=== PATIENT | female | born 1980 | race Two or more races ===

== ENCOUNTER → 2018-03-29 | Outpatient (REF) | payer BC ==
[2018-03-31 14:13] LABS: HPV HYBRID CAPTURE II Negative (Negative)
== END ==
LOC: M LAB REF 19:17
PROVIDERS: ATTEND Advanced Practice Midwife
DX: Z12.4 Encounter for screening for malignant neoplasm of cervix (principal)
CPT/HCPCS: 87624; G0123

== ENCOUNTER → 2019-04-23 | Outpatient (REF) | payer BC ==
[2019-04-23 19:28] LABS: CHLAMYDIA DNA AMPLIFICATION NEGATIVE (NEGATIVE); GC DNA AMPLIFICATION NEGATIVE (NEGATIVE)
== END ==
LOC: M SFHCWAGY 16:54
PROVIDERS: ATTEND Advanced Practice Midwife
DX: Z11.3 Encounter for screening for infections with a predominantly sexual mode of transmission (principal)

== ENCOUNTER → 2019-09-10 | Outpatient (CLI) | payer BC, MEDICARE ==
[~2019-09-10] MED LIST: CENTCHW4 PO; DULO1CAP6 PO; IBUP-1022 PO; IBUP-1114 PO; LILL1TAB PO; LISI10TA4 PO; OXYC1TAB23 PO; PANT40TA29 PO; TRAZ-186 PO
== END ==
LOC: M LABSMTC 11:38
PROVIDERS: ATTEND Anesthesiology
DX: Z01.818 Encounter for other preprocedural examination (principal); Z11.59 Encounter for screening for other viral diseases
CPT/HCPCS: C9803; U0003

== ENCOUNTER 2019-09-13 13:04 | Day surgery (SDC) | payer OTHER ==
[~2019-09-13] VITALS: Ht 157.5 cm; Wt 90.6 kg
[~2019-09-13 13:04] MED LIST changes: -IBUP-1022 PO; -IBUP-1114 PO; -OXYC1TAB23 PO; -PANT40TA29 PO; +PANT40TA3 PO
[2019-09-13] MEDS ORDERED: IBUP-1114 PO (13:57)
[2019-09-13 14:46] LABS: HEMATOCRIT 39.2 % (36.0-47.0); HEMOGLOBIN 12.8 g/dl (12.0-15.5); MEAN CORPUSCULAR HGB CONC 32.7 g/dl (32.0-36.5); PLATELET COUNT, AUTOMATED 308 10^3/uL (150-450); RED BLOOD COUNT 4.26 10^6/uL (4.00-5.40)
[2019-09-13] MEDS ORDERED: OXYC1TAB23 PO (16:42)
[2019-09-13] MEDS ORDERED: IBUP-1022 PO (16:44)
[2019-09-13] MEDS ORDERED: LIDOCAINE 1% SDV 30ML VIAL As Ordered ONE (17:58)
[2019-09-13] MEDS ORDERED: BUPIVACAINE HCL 0.25% 30ML VIAL As Ordered ONE (17:58)
[2019-09-13] MEDS ORDERED: LIDOCAINE 2% 100MG/5ML SDV (FOR ANES.) As Ordered ONE (17:59)
[2019-09-13] MEDS ORDERED: ROCURONIUM BROMIDE 50 MG/5 ML VIAL As Ordered ONE (17:59)
[2019-09-13] MEDS ORDERED: dexameTHASONE 4 MG/ML 1ML VIAL (J1100 PER 1MG) As Ordered ONE (17:59)
[2019-09-13] MEDS ORDERED: propofoL 200 MG/20 ML VIAL As Ordered ONE (17:59)
[2019-09-13] MEDS ORDERED: MIDAZOLAM INJ 2MG/2ML VIAL (J2250 PER 1MG) As Ordered ONE (17:59)
[2019-09-13] MEDS ORDERED: fentaNYL 250 MCG/5 ML INJECTION (J3010) As Ordered ONE (17:59)
[2019-09-13] MEDS ORDERED: oxyCODONE 5MG TAB As Ordered ONE (19:38)
[2019-09-13] MEDS ORDERED: ONDANSETRON 4MG/2ML VIAL IV PRN (20:30)
[2019-09-13] MEDS ORDERED: LR 1,000 ML IV SCH ×2 (20:30)
[2019-09-13] MEDS ORDERED: PERCOCET 5MG/325MG TAB PO PRN (20:30)
[2019-09-13] MEDS ORDERED: fentaNYL 100 MCG/2 ML INJECTION (J3010) IV PRN (20:30)
[2019-09-13] MEDS ORDERED: HYDROMORPHONE HCL 0.5 MG/ 0.5 ML SYRINGE (J1170 PER 1) IV PRN (20:30)
[2019-09-13] MEDS ORDERED: oxyCODONE 5MG TAB PO PRN (20:30)
[2019-09-13 21:15] VITALS: BP 130/74
--- NOTE | 2019-09-17 14:10 | RO ---
DATE OF OPERATION: 09/13/2019 PREOPERATIVE DIAGNOSIS: Menorrhagia. POSTOPERATIVE DIAGNOSIS: Menorrhagia. PROCEDURE: Laparoscopic bilateral salpingectomy, hysteroscopy, NovaSure endometrial ablation. SURGEON: Kash Dhillon MD NURSE LDR: ANESTHESIA: Laryngeal mask airway (LMA). ESTIMATED BLOOD LOSS: Minimal. FINDINGS: Normal pelvis including uterus, fallopian tubes, and ovaries. Normal upper abdomen. OPERATIVE SUMMARY: The patient was taken to the operating room where general anesthesia was induced. She was prepped and draped in the sterile fashion in the dorsal lithotomy position. A Jeffers catheter was placed. A sponge stick was placed in the vagina used as a manipulator. A periumbilical incision was made with the scalpel. A Veress needle was placed through this incision while tenting up on the skin of the abdomen. Intraabdominal location of the Veress needle was assessed with the use of a saline filled syringe. A pneumoperitoneum was created. The Veress needle was removed. A 5 mm trocar using Visiport was inserted through this incision. A 5 and 8 mm suprapubic port were placed under direct visualization. Using grasping instruments and LigaSure device the fallopian tubes were elevated. Broad ligament attachments to the fallopian tubes were coagulated and incised. The fallopian tubes were amputated near their origin. Both fallopian tubes were removed through the suprapubic ports. Pneumoperitoneum was released. All instruments were removed. The skin was closed with #4-0 Monocryl and subcuticular sutures. Attention was turned to the vagina. A speculum was placed. Jeffers catheter was removed. The anterior lip of the cervix was grasped with a tenaculum. The cervix was dilated with tapered dilators. Diagnostic hysteroscope using normal saline a distention media was placed through the internal os. Visualization of the endometrial cavity revealed normal findings. The hysteroscope was removed. NovaSure device was inserted. Endometrial cavity length was 4.0 cm. Endometrial cavity width was 3.5 cm. Total power setting was 77 wu. Successful cavity assessment was performed. Coagulation was initiated. Total coagulation time was 1 minute and 27 seconds. All instruments were removed. The hysteroscope was placed back in the endometrium and excellent coagulation effect was noted sparing of the cervix. All instruments were removed. Sponge, instrument, and needle counts were correct. The patient went to recovery room in stable condition.
== END 2019-09-13 21:25 | disposition home or self-care (01) ==
LOC: M SDC 13:04
PROVIDERS: ATTEND Specialist
DX: N92.0 Excessive and frequent menstruation with regular cycle (principal); Z30.2 Encounter for sterilization; F41.9 Anxiety disorder, unspecified; F32.9 Major depressive disorder, single episode, unspecified; K21.9 Gastro-esophageal reflux disease without esophagitis; Z79.899 Other long term (current) drug therapy; Z88.0 Allergy status to penicillin
CPT/HCPCS: 36415; 58563; 58661; 81025; 85027; 88302; J1100; J2250; J3010

== ENCOUNTER → 2020-10-21 | Outpatient (REF) | payer OTHER, MEDICARE ==
[~2020-10-21] MED LIST changes: +IBUP-1022 PO; +IBUP-1114 PO; +LISI10TA22 PO; -LISI10TA4 PO; +OXYC1TAB23 PO; +PANT40TA29 PO; -PANT40TA3 PO
== END ==
LOC: M SFHCWAGY 11:33
PROVIDERS: ATTEND Advanced Practice Midwife
DX: Z12.4 Encounter for screening for malignant neoplasm of cervix (principal)

== ENCOUNTER → 2024-09-30 | Outpatient (CLI) | payer MEDICARE, OTHER | LOC: M SOG 08:26 | PROVIDERS: ATTEND Neuromusculoskeletal Medicine, Sports Medicine | DX: R20.0 Anesthesia of skin (principal); M25.541 Pain in joints of right hand ==

== ENCOUNTER 2024-11-26 06:03 | Day surgery (SDC) | payer MEDICAID, OTHER ==
[~2024-11-26] VITALS: Ht 157.5 cm; Wt 98.7 kg
[~2024-11-26 06:03] MED LIST changes: +DULO1CAP5 PO; -IBUP-1022 PO; +IBUP600T42 PO
[2024-11-26] MEDS ORDERED: FLON1SPR NARES (06:32)
[2024-11-26] MEDS: LR 1,000 ML IV SCH (06:35)
[2024-11-26] MEDS ORDERED: ONDANSETRON 4MG 2ML VIAL As Ordered ONE (06:59)
[2024-11-26] MEDS ORDERED: dexAMETHasone 4 MG/ML 1 ML VIAL As Ordered ONE (06:59)
[2024-11-26] MEDS ORDERED: ACETAMINOPHEN 1000MG/100ML IV BAG As Ordered ONE (06:59)
[2024-11-26] MEDS ORDERED: dexmedeTOMIDine (4 MCG/ML) 200 MCG/50 ML BTL As Ordered ONE (07:00)
[2024-11-26] MEDS ORDERED: LIDOCAINE 2% 100 MG/5 ML SDV (FOR ANES.) As Ordered ONE (07:03)
[2024-11-26] MEDS ORDERED: MIDAZOLAM INJ 2 MG/2 ML VIAL As Ordered ONE (07:05)
[2024-11-26] MEDS: ceFAZolin SOD 2 GM IV ONCE IV ONE (08:00)
[2024-11-26] MEDS ORDERED: HYDROmorphone HCL 2 MG/ML 1 ML VIAL As Ordered ONE (08:08)
[2024-11-26] MEDS ORDERED: PHENYLephrine 500MCG 5ML (100MCG/ML) SYRINGE As Ordered ONE (08:11)
[2024-11-26] MEDS: LIDOCAINE 1% SDV 30 ML VIAL As Ordered ONE (08:35)
[2024-11-26] MEDS ORDERED: KETOROLAC 30 MG/ML 1 ML VIAL As Ordered ONE (08:37)
[2024-11-26] MEDS ORDERED: LR 1,000 ML IV SCH (08:50)
[2024-11-26] MEDS: ONDANSETRON 4MG 2ML VIAL IV PRN (10:02)
[2024-11-26 10:45] VITALS: BP 126/61; O2SAT 95
[2024-11-26] MEDS ORDERED: ONDANSETRON 4MG TAB PO ONE (10:55)
[2024-11-26] MEDS: ONDANSETRON 4MG ORAL DISINTEGRATING TAB PO ONE (11:04)
== END 2024-11-26 11:08 | disposition home or self-care (01) ==
LOC: M SDC 06:03
PROVIDERS: ATTEND Neuromusculoskeletal Medicine, Sports Medicine
DX: G56.01 Carpal tunnel syndrome, right upper limb (principal); I10 Essential (primary) hypertension; K58.8 Other irritable bowel syndrome; K76.0 Fatty (change of) liver, not elsewhere classified; K21.9 Gastro-esophageal reflux disease without esophagitis; F41.9 Anxiety disorder, unspecified; F32.A Depression, unspecified; Z79.899 Other long term (current) drug therapy; Z88.0 Allergy status to penicillin; Z88.5 Allergy status to narcotic agent
CPT/HCPCS: 64721; J0131; J0690; J1100; J1171; J1885; J2250; J2371; J2405; J3010